=== PATIENT | female | born 1995 | race Caucasian/White ===

== ENCOUNTER 2019-11-25 23:17 | Emergency (ER) | payer SELFPAY ==
--- NOTE | 2019-11-26 00:53 | EDM.PDOC ---
ED HPI GENERAL MEDICAL PROBLEM - General Chief Complaint: General Stated Complaint: VOMITING Time Seen by Provider: 11/26/19 00:42 Source of Information: Reports: Patient History Limitations: Reports: No Limitations - History of Present Illness INITIAL COMMENTS - FREE TEXT/NARRATIVE: Patient presents describing nausea and vomiting for several hours today. No one else ill around her. No new food difficulties. No other recent illness. She is concerned that she is dehydrated. When she has been vomiting, what comes up has been small amounts of mucus or in some instances just dry heaves episode. After discussing things with friends, she presented for evaluation tonight. Onset: Today Duration: Hour(s): (3) Location: Reports: Abdomen Quality: Reports: Ache Severity: Mild Improves with: Reports: None Worsens with: Reports: None - Related Data Allergies Allergy/AdvReac Type Severity Reaction Status Date / Time corn Allergy Abdominal Verified 11/26/19 00:04 Pain gluten Allergy Abdominal Verified 11/26/19 00:04 Pain Home Meds: Home Meds NK [No Known Home Meds] 11/26/19 [History] Past Medical History HEENT History: Reports: Allergic Rhinitis Respiratory History: Reports: Asthma Social & Family History - Tobacco Use Smoking Status *Q: Never Smoker Second Hand Smoke Exposure: No - Caffeine Use Caffeine Use: Reports: Coffee - Recreational Drug Use Recreational Drug Use: No ED ROS GENERAL - Review of Systems Review Of Systems: See Below Constitutional: Reports: No Symptoms Respiratory: Reports: No Symptoms Cardiovascular: Reports: No Symptoms GI/Abdominal: Reports: Abdominal Pain, Diarrhea, Decreased Appetite, Nausea, Vomiting. Denies: Black Stool, Bloody Stool, Constipation, Distension : Reports: No Symptoms ED EXAM, GENERAL - Physical Exam Exam: See Below Exam Limited By: No Limitations General Appearance: Alert, No Apparent Distress Neck: Normal Inspection Respiratory/Chest: No Respiratory Distress, Lungs Clear Cardiovascular: Regular Rate, Rhythm GI/Abdominal: Soft, Non-Tender, No Distention, Abnormal Bowel Sounds (Diminished) (Female) Exam: Deferred Extremities: Normal Inspection Course - Vital Signs Last Recorded V/S: Last Vital Signs Temp 35.1 C L 11/26/19 00:04 Pulse 86 11/26/19 00:04 Resp 16 11/26/19 00:04 BP 128/71 11/26/19 00:04 Pulse Ox 98 11/26/19 00:04 - Orders/Labs/Meds Labs: Laboratory Tests 11/26/19 11/26/19 11/26/19 Range/Units 01:04 01:04 01:04 WBC 9.2 (4.5-11.0) K/uL RBC 4.16 (3.30-5.50) M/uL Hgb 12.6 (12.0-15.0) g/dL Hct 38.0 (36.0-48.0) % MCV 91 (80-98) fL MCH 30 (27-31) pg MCHC 33 (32-36) % Plt Count 245 (150-400) K/uL Neut % (Auto) 83 H (36-66) % Lymph % (Auto) 12 L (24-44) % Geary % (Auto) 5 (2-6) % Eos % (Auto) 0 L (2-4) % Baso % (Auto) 0 (0-1) % Sodium 139 L (140-148) mmol/L Potassium 3.4 L (3.6-5.2) mmol/L Chloride 101 (100-108) mmol/L Carbon Dioxide 27 (21-32) mmol/L Anion Gap 14.4 H (5.0-14.0) mmol/L BUN 11 (7-18) mg/dL Creatinine 0.7 (0.6-1.0) mg/dL Est Cr Clr Drug Dosing 99.77 mL/min Estimated GFR (MDRD) > 60 (>60) Glucose 92 (74-106) mg/dL Calcium 8.5 (8.5-10.1) mg/dL HCG, Qual Negative Meds: Medications Discontinued Medications Generic Name Dose Route Start Last Admin Trade Name Freq PRN Reason Stop Dose Admin Sodium Chloride 1,000 mls @ 999 mls/hr 11/26/19 00:54 11/26/19 01:07 Normal Saline IV 11/26/19 01:54 999 mls/hr .BOLUS ONE Administration Ondansetron HCl 4 mg 11/26/19 00:54 11/26/19 01:09 Zofran IVPUSH 11/26/19 00:55 4 mg ONETIME ONE Administration Sodium Chloride 10 ml 11/26/19 00:54 11/26/19 01:12 Saline Flush FLUSH 10 ml ASDIRECTED PRN Administration Keep Vein Open - Re-Assessments/Exams Free Text/Narrative Re-Assessment/Exam: 11/27/19 03:19 The patient was given ondansetron 4 mg IV along with 1 L of normal saline by rapid infusion. At recheck later, she felt better. CBC, CMP, serum hCG testing all are negative. I recommend nondairy diet as discussed until feeling better. Small frequent portions of liquid and food will sit better with her. She was discharged in stable condition. 11/27/19 03:20 Departure - Departure Time of Disposition: 02:10 Disposition: Home, Self-Care 01 Condition: Good Clinical Impression: Nausea and vomiting Qualifiers: Vomiting type: unspecified Vomiting Intractability: non-intractable Qualified Code(s): R11.2 - Nausea with vomiting, unspecified - Discharge Information Instructions: Nausea and Vomiting, Adult, [id number] Referrals: PCP,None [Primary Care Provider] - Forms: ED Department Discharge Additional Instructions: Avoid dairy products except yogurt until better. Drink/eat small amounts frequently to keep hydrated. Recheck in clinic if not better in 5 days. Sepsis Event Note (ED) - Evaluation Sepsis Screening Result: No Definite Risk
[2019-11-26] MEDS ORDERED: Sodium Chloride 0.9% 1,000 ML IV ONE (00:54)
[2019-11-26] MEDS ORDERED: Sodium Chloride 0.9% 10 ML Syringe FLUSH PRN (00:54)
[2019-11-26] MEDS ORDERED: Ondansetron 4 MG/2 ML SDV IVPUSH ONE (00:54)
== END 2019-11-26 02:28 | disposition home or self-care (01) ==
LOC: JP.ED 23:17
DX: R11.2 Nausea with vomiting, unspecified (principal); Z91.018 Allergy to other foods
CPT/HCPCS: 36415; 80048; 84703; 85025; 96361; 96374; 99284; J2405; J7030